=== PATIENT | female | born 1980 | race Asian ===

== ENCOUNTER 2016-10-20 09:24 | Inpatient (IN) | payer SELFPAY ==
[~2016-10-20] VITALS: Ht 160 cm; Wt 60.3 kg
[2016-10-20] MEDS ORDERED: OXYTOCIN 20 UNITS/LR PREMIX 1,000 ML IV SCH ×2 (11:13→11:30)
[2016-10-20] MEDS ORDERED: LACTATED RINGERS 1,000 ML IV SCH (11:13)
[2016-10-20] MEDS ORDERED: OXYTOCIN 10 UNITS/ML VIAL IM SCH (11:15)
[2016-10-20] MEDS ORDERED: MISOPROSTOL 25 MCG TAB VG SCH (11:20)
[2016-10-20] MEDS ORDERED: MISOPROSTOL 25 MCG TAB VG PRN (11:25)
--- NOTE | 2016-10-20 11:25 | NUR ---
PATIENT HAS BEEN SCREENED AND CATEGORIZED LOW NUTRITION RISK. PATIENT WILL BE SEEN WITHIN 7 DAYS OF ADMISSION. 10/26/[address]
[2016-10-20 12:01] LABS: BASOPHILS # (AUTO) 0.1 K/uL (0.00-0.22); BASOPHILS % (AUTO) 1.5 % (0.0-2.0); EOSINOPHILS # (AUTO) 0.2 K/uL (0-0.4); EOSINOPHILS % (AUTO) 2.3 % (0.0-4.0); HEMATOCRIT 37.7 % (36-48); HEMOGLOBIN 12.8 g/dL (12.0-16.0); LYMPHOCYTES # (AUTO) 1.6 K/uL (2.5-16.5); MEAN CORPUSCULAR HEMOGLOBIN 31 pg (27-31); MEAN CORPUSCULAR HGB CONC 34 g/dL (33-37); MEAN CORPUSCULAR VOLUME 92 fL (80-94); MONOCYTES # (AUTO) 0.4 K/uL (0.8-1.0); MONOCYTES % (AUTO) 5.3 % (1.7-9.3); NEUTROPHILS % (AUTO) 68.9 % (42.2-75.2); PLATELET COUNT (AUTO) 227 K/uL (140-450); RED BLOOD CELL COUNT(AUTO) 4.08 MIL/uL (4.20-5.40); WHITE BLOOD COUNT (AUTO) 7.3 K/uL (4.8-10.8)
[2016-10-20] MEDS ORDERED: MISOPROSTOL 25 MCG TAB ONE (12:24)
[2016-10-20 12:31] LABS: BILIRUBIN,URINE NEGATIVE (NEGATIVE); BLOOD, URINE NEGATIVE (NEGATIVE); COLOR,URINE YELLOW (YELLOW); LEUKOCYTE ESTERASE ,URINE NEGATIVE (NEGATIVE); NITRITE, URINE NEGATIVE (NEGATIVE); UGLUCOSE NEGATIVE (NEGATIVE)
[2016-10-20 12:38] LABS: APPEARANCE,URINE HAZY (CLEAR)
[2016-10-20 12:39] LABS: WBC,URINE 0-5 (RARE) /HPF (0-5)
[2016-10-20 12:40] VITALS: BP 103/69
[2016-10-20 12:40] LABS: RBC,URINE NONE SEEN /HPF (0-5)
[2016-10-20 12:54] LABS: ANION GAP 13.1 (8-16); CARBON DIOXIDE 22.7 mmol/L (21-32); CREATININE 0.6 mg/dL (0.6-1.3); POTASSIUM 3.8 mmol/L (3.5-5.1)
[2016-10-20 13:00] LABS: ALBUMIN 2.7 g/dL (3.4-5.0); TOTAL BILIRUBIN 0.5 mg/dL (0.0-1.0)
[2016-10-20] MEDS ORDERED: ROPIVACAINE 0.2%/NS PREMIX 250 ML EPI ONE (15:02)
[2016-10-20] MEDS ORDERED: OXYTOCIN 20 UNITS/LR PREMIX 1,000 ML IV ONE (16:46)
[2016-10-20] MEDS ORDERED: AMPICILLIN 2,000 MG VIAL ONE (17:58)
[2016-10-20] MEDS ORDERED: AMPICILLIN 2,000 MG in NACL 0.9% 100 ML IV SCH (18:00)
[2016-10-20] MEDS ORDERED: AMPICILLIN 1,000 MG in NACL 0.9% 50 ML IV SCH (22:00)
[2016-10-20] MEDS ORDERED: AMPICILLIN 1,000 MG VIAL ONE (22:06)
[2016-10-20] MEDS ORDERED: OXYTOCIN 10 UNITS/ML VIAL ONE (22:50)
[2016-10-21] MEDS ORDERED: MEASLES, MUMPS, AND RUBELLA 1 VIAL SQVAC PRN (04:20)
[2016-10-21] MEDS ORDERED: OXYTOCIN 10 UNITS/ML VIAL IM PRN (04:20)
[2016-10-21] MEDS ORDERED: TEMAZEPAM 15 MG CAP PO PRN (04:20)
[2016-10-21] MEDS ORDERED: HYDROcodone/APAP 5/325 MG 1 TAB TAB PO PRN (04:20)
[2016-10-21] MEDS ORDERED: BENZOCAINE/MENTHOL 20%-0.5% 60 GM CAN TP PRN (04:20)
[2016-10-21] MEDS ORDERED: METHYLERGONOVINE 0.2 MG/ML AMP IM PRN (04:20)
[2016-10-21] MEDS ORDERED: oxyCODONE/APAP 5/325 MG 1 TAB TAB PO PRN (04:20)
[2016-10-21] MEDS ORDERED: IBUPROFEN 800 MG TAB PO PRN (04:20)
[2016-10-21 05:26] LABS: HEMATOCRIT 34.2 % (36-48); HEMOGLOBIN 11.4 g/dL (12.0-16.0)
[2016-10-21] MEDS ORDERED: DOCUSATE SOD/SENNA 50/8.6 MG 1 TAB PO SCH (21:00)
== END 2016-10-22 18:30 | disposition home or self-care (01) | DRG 775 ==
LOC: MLD 09:24 → MFCC 10-21 03:57
PROVIDERS: ADMIT Obstetrics & Gynecology; ATTEND Obstetrics & Gynecology
PROC: 10E0XZZ Delivery of Products of Conception, External Approach (ICD-10-PCS; principal; 2016-10-20)
PROC: 10907ZC Drainage of Amniotic Fluid, Therapeutic from Products of Conception, Via Natural or Artificial Opening (ICD-10-PCS; 2016-10-20)
PROC: 0W8NXZZ Division of Female Perineum, External Approach (ICD-10-PCS; 2016-10-20)
PROC: 00HU33Z Insertion of Infusion Device into Spinal Canal, Percutaneous Approach (ICD-10-PCS; 2016-10-20)
PROC: 3E0R3CZ (ICD-10-PCS; 2016-10-20)
DX: O80 Encounter for full-term uncomplicated delivery (principal); Z37.0 Single live birth; Z3A.39 39 weeks gestation of pregnancy
CPT/HCPCS: 36415; 80053; 81001; 85018; 85025; 86592; 86886; 86900; 86901; J0290; J2590; J2795; J7120